=== PATIENT | female | born 1970 | race Caucasian/White ===

== ENCOUNTER 2024-01-29 06:13 | Emergency (ER) | payer BC, SELFPAY ==
[2024-01-29] MEDS ORDERED: diphenhydrAMINE 50 MG/ML VIAL ONE (06:52)
[2024-01-29] MEDS ORDERED: methylPREDNISolone Sod Succ/PF 125 MG/2 ML VIAL ONE (06:52)
[2024-01-29] MEDS ORDERED: Famotidine/PF 20 mg/2ml Vial ONE (06:59)
== END 2024-01-29 08:27 | disposition home or self-care (01) ==
LOC: ERS 06:13
DX: T78.3XXA Angioneurotic edema, initial encounter (principal)
CPT/HCPCS: 96374; 96375; J1200; J2930; S0028